=== PATIENT | male | born 1955 | race Caucasian/White ===

== ENCOUNTER 2023-01-27 08:52 | Day surgery (SDC) | payer MEDICARE, OTHER ==
[2023-01-24 10:57] VITALS: BMI 35.9
[2023-01-27 09:47] LABS: #Eosinphils 0.1 thou/uL (0.0-0.7); #Monocytes 0.3 thou/uL (0.11-0.59); #Neutrophils 3.5 thou/uL (1.40-6.50); %Basophils 0.5 % (0.0-1.0); %Lymphocytes 28.6 % (21.0-51.0); %Monocytes 5.4 % (0.0-10.0); Hemoglobin 13.8 g/dL (14.0-18.0); Mean Corpuscular HGB CONC 33.4 g/dL (32.0-36.0); Mean Corpuscular Hemoglobin 28.3 pg (27.0-31.0); Mean Corpuscular Volume 84.8 fl (78.0-98.0); Mean Platelet Volume 8.7 fL (7.4-10.4); Platelet Count 168 10x3/uL (130-400); RBC Distribution Width 15.5 % (11.5-14.5); Red Blood Cell (RBC) Count 4.87 mill/uL (4.70-6.10); White Blood Cell (WBC) Count 5.5 10x3/uL (4.8-10.8)
[2023-01-27 10:16] LABS: Anion Gap 15 mmol/L (10-20); BUN (Urea Nitrogen) 28 mg/dL (8.4-25.7); Calc. Creatinine Clearance 104 mL/min (70-130); Calcium 9.4 mg/dL (7.8-10.44); Carbon Dioxide 24 mmol/L (23-31); Chloride 107 mmol/L (98-107); Estimated GFR 69; Glucose 124 mg/dL (80-115); Potassium 4.5 mmol/L (3.5-5.1); Sodium 141 mmol/L (136-145)
[2023-01-27] MEDS ORDERED: PROPOFOL 20 ML ONE (10:24)
[2023-01-27] MEDS ORDERED: Lidocaine 1% PF 5 ML VIAL ONE (10:58)
[2023-01-27] MEDS ORDERED: Ketamine 50 MG/ML (10ML VIAL) ONE (11:00)
== END 2023-01-27 13:22 | disposition home or self-care (01) ==
LOC: SDC 08:52
PROVIDERS: ATTEND Internal Medicine Cardiovascular Disease
DX: I48.91 Unspecified atrial fibrillation (principal); I83.899 Varicose veins of unspecified lower extremity with other complications; I08.1 Rheumatic disorders of both mitral and tricuspid valves; Z79.01 Long term (current) use of anticoagulants; Z79.82 Long term (current) use of aspirin
CPT/HCPCS: 36415; 80048; 85025; 92960; 93005; 93010; 93312; J2704